=== PATIENT | male | born 1965 | race Caucasian/White ===

== ENCOUNTER → 2020-09-20 10:05 | Outpatient (CLI) | payer OTHER, SELFPAY ==
--- NOTE | 2020-09-20 | DI.MRI.S_ITS ---
PROCEDURE: MR LUMBAR SPINE WO CON INDICATIONS: Radiculopathy, lumbosacral region TECHNIQUE: Noncontrast sagittal T1 spin echo and T2 fast echo, sagittal STIR, axial T1 and T2 fast spin echo through the lumbar spine. In cases with scoliosis, additional coronal T2 fast spin echo may be performed. COMPARISON: None. FINDINGS: Image quality: Excellent. Alignment and Curvature: There is normal bony alignment. Bone Marrow: Marrow is of normal overall signal. Focus of increased T1 and T2 signal is present at L4 most consistent with hemangioma. Mild reactive endplate changes are present at . L1-L2, L4-5, L5-S1, with Schmorl's node along the inferior endplates of L1, L4 and L5. No acute vertebral body compression fractures. Spinal Cord: Conus medullaris terminates at the L1-L2 level. Visualized cord demonstrates normal signal and size. Paraspinous Soft Tissues: No paravertebral masses. Discs: Moderate desiccation is present L4-5, L5-S1, minimal to mild throughout the remainder of the lumbar spine. L1-L2: Minimal disc bulge without spinal stenosis. No foraminal narrowing. L2-L3: Minimal disc bulge with minimal canal narrowing. Minimal to mild left and minimal right foraminal narrowing with facet and ligamentum flavum hypertrophy. L3-L4: Mild disc bulge with [id number] spinal stenosis. Mild left foraminal narrowing with facet and ligamentum flavum hypertrophy. L4-L5: Mild disc bulge with severe spinal stenosis and canal compression. Severe bilateral foraminal narrowing, right greater than left with exiting L4 nerve root compression notable on the right. Facet and ligamentum flavum hypertrophy are present. L5-S1: Mild disc bulge with [id number] spinal stenosis. Severe bilateral foraminal narrowing, left greater than right with flattening of the exiting L5 nerve roots. Facet hypertrophy is present. IMPRESSION: 1. Multilevel spinal stenosis severe at L4-5 secondary to disc bulge with contributing affective facet/ligamentum flavum arthropathy. 2. Multilevel foraminal narrowing severe at L4-5 and L5-S1 secondary to facet arthropathy. Dictated by: Amber Encarnacion M.D. on 09/22/2020 at 8:36 Approved by: Amber Encarnacion M.D. on 09/22/2020 at 9:17
== END ==
PROVIDERS: Referring Provider Chiropractor; Visit Provider Chiropractor
DX: M51.16 Intervertebral disc disorders with radiculopathy, lumbar region (principal); M47.26 Other spondylosis with radiculopathy, lumbar region; M47.27 Other spondylosis with radiculopathy, lumbosacral region; M48.061 Spinal stenosis, lumbar region without neurogenic claudication; M48.07 Spinal stenosis, lumbosacral region
CPT/HCPCS: 72148